=== PATIENT | male | born 1990 | race Caucasian/White ===

== ENCOUNTER 2020-10-29 12:00 | Emergency (ER) | payer MEDICAID, SELFPAY ==
[2020-10-29 12:00] VITALS: BP 116/77; PULSE 71; RESP 16; TEMP 36.4; O2SAT 100; BMI 22.9
--- NOTE | 2020-10-29 12:40 | ED.RN ---
PT NOW DRESSED SEEN LEAVING THE DEPARTMENT AND WALK OUT OF THE BUILDING
--- NOTE | 2020-10-29 12:45 | EDS_ITS ---
HPI History of Present Illness Chief Complaint: Back Informant: patient Narrative Narrative: Patient is a 30-year-old male who presents to the emergency department for low back pain. 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 He was having a hard time getting up from standing. He currently rates his pain as a 10 out of 10. He did take ibuprofen for this which has not given significant relief. The pain did go to the front of his thighs bilaterally. He denies any saddle anesthesia. No urinary incontinence/retention. No change in bowel movements. No vomiting. Denies any fevers or chills. No abdominal pain or chest pain/shortness of breath. He does have chronic back problems and history of scoliosis. [facility] Medical History (Updated 10/29/20 @ 12:[address] Mainor Genao DO) Knee arthropathy Home Medications sertraline [Zoloft] 50 mg PO DAILY 10/29/20 [History Last Taken Unknown] Allergy/AdvReac Type Severity Reaction Status Date / Time Penicillins Allergy Unknown Verified 10/29/20 12:02 Social History Smoking Status: Current every day smoker tobacco type: cigarettes ROS ROS ED Constitutional Constitutional ED: Denies chills or fever(s) Eyes Eyes: Denies change in vision ENT ENT ED: Denies epistaxis or rhinorrhea Cardiovascular Cardiovascular: Denies chest pain or palpitations Respiratory/Chest Respiratory/Chest: Denies cough, dyspnea or dyspnea on exertion Gastrointestinal Gastrointestinal: Denies abdominal pain, diarrhea, nausea or vomiting Genitourinary Genitourinary ED: Denies dysuria, hematuria or urinary frequency Musculoskeletal Musculoskeletal: Reports back pain; Denies neck pain Integumentary Denies rash Neurologic Neurologic: Denies dizziness, headache(s) or weakness EXAM Physical Exam Const Vital Signs: 10/29/20 12:00 Temperature 97.5 F L Temperature Source Temporal Pulse Rate 71 Respiratory Rate 16 Blood Pressure 116/77 Blood Pressure Mean 90 Pulse Ox 100 Oxygen Delivery Method Room Air Positive well nourished and well developed General Appearance ED: well developed and NAD HEENT Reports normocephalic, head/scalp atraumatic and moist mucous membranes Eyes PERRL and EOMs intact bilaterally Neck supple General: Negative for tenderness Chest Wall inspection of chest normal Resp normal respiratory effort and clear to auscultation bilaterally Auscultation: Negative for rales, rhonchi or wheezes Cardio regular rate, regular rhythm and no murmurs GI normal to inspection, nondistended, normoactive bowel sounds and non-tender Palpation: soft; Negative for guarding or rebound tenderness present Back/Spine no CVA tenderness and normal to inspection Back/Spine Narrative: 5 out of 5 muscle strength. Sensation intact. Lumbar Spine / Lower Back: straight leg raise negative bilaterally Extremity normal to inspection General Extremety ED: Negative for edema or tenderness General Extremity: Negative for edema Neuro no sensory deficits noted Sensorium / Orientation: alert Motor Exam: strength 5/5 throughout Psych mental status grossly normal Skin no rashes or lesions noted MDM MDM MDM Narrative Medical decision making narrative: Patient presents the ED for low back pain after lifting a box. He does have a benign physical exam. No red flag symptoms for acute surgical spinal emergency. Vital signs within normal limits. I did offer patient a dose of Toradol. Patient was initially agreeable with this but whenever the nurse went to check on him patient eloped out of the department. I did offer to write him prescription for home therapy including Lidoderm patch, Naprosyn. Patient left prior to getting discharge instructions. Discharge Plan Triage Chief Complaint: Back ED Provider: Mainor Genao Dx/Rx/DC Orders Clinical Impression: Low back pain Prescriptions: No Action sertraline [Zoloft] 50 mg Tablet 50 mg PO DAILY RF: 0 Primary Care Provider: Reed Pichardo Referrals: Reed Pichardo MD [Primary Care Provider] - Disposition Disposition: Elopement
== END 2020-10-29 12:40 | disposition left against medical advice (07) ==
LOC: ED 13:44
PROVIDERS: Emergency Provider Emergency Medicine; PCP Family Medicine
DX: M54.5 Low back pain (principal); F17.210 Nicotine dependence, cigarettes, uncomplicated; Z79.899 Other long term (current) drug therapy
CPT/HCPCS: 99281; 99282

== ENCOUNTER 2020-10-29 13:58 | Emergency (ER) | payer MEDICAID, SELFPAY ==
[2020-10-29 13:58] VITALS: BP 109/74; PULSE 57; RESP 18; TEMP 36.4; O2SAT 97; BMI 24.3
--- NOTE | 2020-10-29 15:25 | EDS_ITS ---
HPI History of Present Illness Chief Complaint: Back Informant: patient Narrative Narrative: Patient represents with back pain. He was seen here earlier. He states he thought he could do well at home without getting a shot here. He went home and his back is still sore. He has not developed new symptoms. Patient was at work earlier in the day. He lifted up a box with 12 cans in it. He got pain in his lower back. He had been doing some other lifting in the day. The pain does not and has never radiated all the way down the legs. He does occasionally get some pain in the front of his thighs. He has no bowel or bladder dysfunction. He does state he feels very stiff. He has had no recent fevers chills infections or antibiotic use. He does report a history of back pain. He has been on Flexeril and meloxicam in the past. He had MRIs in the past. He has history of fibromyalgia and scoliosis. He has never had surgeries. He can occasionally get in positions that help. Moving and twisting makes the pain worse. [facility] Medical History Knee arthropathy Home Medications cyclobenzaprine 10 mg PO TID PRN #12 tab 10/29/20 [Rx Last Taken Unknown] naproxen [Naprosyn] 500 mg PO BID PRN #20 tab 10/29/20 [Rx Last Taken Unknown] sertraline [Zoloft] 50 mg PO DAILY 10/29/20 [History Last Taken Unknown] Allergy/AdvReac Type Severity Reaction Status Date / Time Penicillins Allergy Unknown Verified 10/29/20 14:00 Social History Smoking Status: Current every day smoker tobacco type: cigarettes ROS ROS ED Constitutional Constitutional ED: Denies chills or fever(s) ENT ENT ED: Denies rhinorrhea or sore throat Cardiovascular Cardiovascular: Denies chest pain or palpitations Respiratory/Chest Respiratory/Chest: Denies dyspnea Gastrointestinal Gastrointestinal: Denies abdominal pain, constipation, diarrhea, nausea or vomiting Genitourinary Genitourinary ED: Reports other Details: No incontinence or difficulty with urination. ; Denies dysuria or hematuria Musculoskeletal Musculoskeletal: Reports back pain; Denies neck pain Integumentary Denies abscess or rash Neurologic Neurologic: Denies paresthesias or weakness Psychiatric Psychiatric: Reports depression Hematologic/Lymphatic Hematologic/Lymphatic: Denies easy bleeding or easy bruising Allergic/Immunologic Allergic/Immunologic ED: Denies urticaria EXAM Physical Exam Const Vital Signs: 10/29/20 13:58 Temperature 97.5 F L Temperature Source Temporal Pulse Rate 57 L Respiratory Rate 18 Blood Pressure 109/74 Blood Pressure Mean 85 Pulse Ox 97 Oxygen Delivery Method Room Air Positive well nourished and well developed General Appearance ED: well developed and NAD HEENT Reports moist mucous membranes Eyes EOMs intact bilaterally General Eye ED: Negative for pale conjunctiva Neck supple Resp normal respiratory effort and clear to auscultation bilaterally Cardio regular rate and regular rhythm GI normal to inspection, nondistended, normoactive bowel sounds, soft to palpation and non-tender Back/Spine normal to inspection Back/Spine Narrative: Patient does have bilateral paraspinal tenderness mostly very low in the lumbar area. No rashes erythema or skin changes. He has mild sciatic notch tenderness more on the right than the left. General Back: Negative for CVA tenderness Extremity normal to inspection Extremity Narrative: No edema or cords. No tenderness. He does have a ankle bracelet on his left. General Extremety ED: Negative for edema or tenderness General Extremity: Negative for edema Neuro oriented x3 Neuro Narrative: Patients can stand and walk. He gets up independently. He has normal quadricep and calf strength. Sensation is intact. Pulses are intact. He has good +2 bilateral patellar reflexes. He has no clonus. Achilles are normal. Sensorium / Orientation: alert Psych mental status grossly normal Skin no rashes or lesions noted and no wounds MDM MDM MDM Narrative Medical decision making narrative: By history, patient has musculoskeletal back pain/strain. He has no red flags of back pain. He does have a history of chronic issues. No recent infections. No neurologic symptoms by exam or history. I think nonsteroidals muscle relaxants ice and rest will be appropriate. Discharge Plan Triage Chief Complaint: Back ED Provider: Tino Ware Dx/Rx/DC Orders Clinical Impression: Low back pain Instructions: ED Back Sprain/Strain Prescriptions: New naproxen [Naprosyn] 500 mg tablet 500 mg PO BID PRN (Reason: pain) Qty: 20 RF: 0 cyclobenzaprine 10 mg tablet 10 mg PO TID PRN (Reason: muscle spasm) Qty: 12 RF: 0 No Action sertraline [Zoloft] 50 mg Tablet 50 mg PO DAILY RF: 0 Primary Care Provider: Reed Pichardo Referrals: Reed Pichardo MD [Primary Care Provider] - 3-5 Days if not improving Disposition Disposition: Home, Self Care
[2020-10-29] MEDS: Ketorolac 60 MG/2 ML Vial IM (15:44)
[2020-10-29] MEDS: cycloBENZAPRine HCl 10 MG Tablet PO (15:45)
== END 2020-10-29 16:08 | disposition home or self-care (01) ==
LOC: ED 16:07
PROVIDERS: Emergency Provider Emergency Medicine; PCP Family Medicine
DX: M54.5 Low back pain (principal); F17.210 Nicotine dependence, cigarettes, uncomplicated; Z79.899 Other long term (current) drug therapy
CPT/HCPCS: 96372; 99283

== ENCOUNTER 2021-02-10 17:18 | Emergency (ER) | payer MEDICAID, SELFPAY ==
[2021-02-10 17:18] VITALS: BP 116/76; PULSE 68; RESP 16; TEMP 36.8; O2SAT 97; BMI 22.3
--- NOTE | 2021-02-10 19:26 | EDS_ITS ---
HPI History of Present Illness Chief Complaint: Bite Detail of Chief Complaint: Left forearm Informant: patient Occured/Mechanism Comment: Dog bite Onset/Context/Timing Onset: Days Context: Gradual Onset Timing: Continuous Current Severity: Mild Maximum Severity: Mild Associated Symptoms Associated Symptoms: Negative for Parasthesia, Weakness and Loss of Funtion Narrative Narrative: 30-year-old male [id number]. They have a new Labrador retriever puppy at home. It bit him on his left forearm on Sunday it is now become red and swollen. Mild discomfort. No fever. He is not diabetic. Prior similar symptoms: No Recent Illness/Hospitalization: No ROS ROS ED ROS Narrative Denies recent illness. Review of Systems ROS Unobtainable: Denies due to encephalopathy Constitutional Constitutional ED: Denies chills or fever(s) Eyes Eyes: Denies change in vision ENT ENT ED: Denies ear pain Cardiovascular Cardiovascular: Denies chest pain Respiratory/Chest Respiratory/Chest: Denies dyspnea Gastrointestinal Gastrointestinal: Denies abdominal pain, nausea or vomiting Genitourinary Genitourinary ED: Denies dysuria Musculoskeletal Musculoskeletal: Denies myalgias Integumentary Denies rash Neurologic Neurologic: Denies headache(s) Psychiatric Psychiatric: Denies depression Endocrine Endocrinology: Denies polyuria Hematologic/Lymphatic Hematologic/Lymphatic: Denies easy bruising Allergic/Immunologic Allergic/Immunologic ED: Denies urticaria [facility] Medical History Depression Knee arthropathy Home Medications sertraline [Zoloft] 50 mg PO DAILY 10/29/20 [History Last Taken Unknown] albuterol sulfate 2 inh INHALATION Q4H PRN PRN 02/10/21 [History Last Taken Unknown] bupropion HCl 150 mg PO DAILY 02/10/21 [History Last Taken Unknown] Allergy/AdvReac Type Severity Reaction Status Date / Time Penicillins Allergy Unknown Verified 02/10/21 17:21 Social History Smoking Status: Current every day smoker tobacco type: cigarettes EXAM Physical Exam Narrative Exam Narrative: 28-year-old male no acute distress. HEENT neck heart lung abdominal exams are unremarkable. Left forearm is about a 4 to 6 inch area of cellulitis on the forearm. Is mildly tender minimally swollen. Left hand is neurovascularly intact with normal strength and sensation. Normal radial pulse and cap refill. He has full range of motion of left shoulder elbow wrist and hand. There is no lymphangitic streaking and there is no axillary lymphadenopathy. Otherwise exam normal. Const Vital Signs: 02/10/21 17:18 Temperature 98.2 F Temperature Source Temporal Pulse Rate 68 Respiratory Rate 16 Blood Pressure 116/76 Blood Pressure Mean 89 Pulse Ox 97 Oxygen Delivery Method Room Air Positive well nourished and well developed; Negative for obese, cachectic, contractures or unkempt General Appearance ED: well developed and NAD; Negative for unkempt, cachectic or contractures Nutritional Appearance: Negative for cachectic or obese HEENT Reports moist mucous membranes normocephalic and atraumatic Eyes PERRL and EOMs intact bilaterally Neck full ROM and no lymphadenopathy Resp normal respiratory effort and clear to auscultation bilaterally Cardio regular rate, regular rhythm, S1 normal heart sound, S2 normal heart sound and no murmurs GI non-tender, non-distended and no masses Auscultation: normoactive bowel sounds Palpation: soft; Negative for tender, guarding or rebound tenderness present Back/Spine no CVA tenderness Extremity normal to inspection Extremity Narrative: Except left forearm cellulitis. Mild tenderness. Neurovascularly intact. No lymphangitic streaking. No axillary lymphadenopathy. Neuro oriented x3 Sensorium / Orientation: alert, oriented to person, oriented to place and oriented to time; Negative for orientation impaired, confused, lethargic or stuporous Motor Exam: strength 5/5 throughout Psych mental status grossly normal and thought process normal Appearance: Negative for unkempt Skin Skin Narrative: Left forearm cellulitis. MDM MDM MDM Narrative Medical decision making narrative: Left arm cellulitis from the dog bite. Will be started on Augmentin twice daily for 10 days first dose given in ER. Return if increasing pain, swelling red streaks or fever. Discharge Plan Triage Chief Complaint: Bite ED Provider: Vinny Benites Dx/Rx/DC Orders Prescriptions: No Action sertraline [Zoloft] 50 mg Tablet 50 mg PO DAILY RF: 0 albuterol sulfate 90 mcg/actuation HFA aerosol inhaler 2 inh INHALATION Q4H PRN PRN (Reason: Wheezing) RF: 0 bupropion HCl 150 mg tablet extended release 24 hr 150 mg PO DAILY RF: 0 Primary Care Provider: Reed Pichardo
[2021-02-10] MEDS: Amox/Clavulanate 875 MG Tablet PO (19:30)
== END 2021-02-10 19:36 | disposition home or self-care (01) ==
PROVIDERS: Emergency Provider Emergency Medicine; PCP Family Medicine
DX: L03.114 Cellulitis of left upper limb (principal); S51.852A Open bite of left forearm, initial encounter; F17.210 Nicotine dependence, cigarettes, uncomplicated; F32.A Depression, unspecified; W54.0XXA Bitten by dog, initial encounter; Z79.899 Other long term (current) drug therapy
CPT/HCPCS: 99283

== ENCOUNTER 2021-05-18 10:26 | Emergency (ER) | payer MEDICAID, SELFPAY ==
[2021-05-18 10:28] VITALS: BP 123/81; PULSE 78; RESP 17; TEMP 36.7; O2SAT 100; BMI 22.1
--- NOTE | 2021-05-18 11:11 | CT_ITS ---
STUDY: CT ABDOMEN AND PELVIS WITH CONTRAST REASON FOR EXAM: Male, 31 years old. Abd pain, rectal pain. One week history of constipation. RADIATION DOSAGE (If Supplied By Facility): CTDIvol = ( 9.66 ) mGy, DLP = ( 469.39 ) mGycm TECHNIQUE: Transaxial images were obtained from the dome of the diaphragm to the symphysis pubis without oral contrast. IV 100mL Isovue-300 was administered. Sagittal and coronal images were reconstructed. Individualized dose optimization techniques were used for this CT. COMPARISON: None. FINDINGS: The visualized lung bases are unremarkable. The visualized portions of the heart are within normal limits. Normal liver. Normal gallbladder and extrahepatic biliary system. Normal spleen. Normal pancreas. Normal bilateral adrenal glands. Normal right kidney. Normal left kidney. Normal visualized stomach. Inflammatory changes are also seen in the terminal ileum. Crohn''s colitis should be ruled out. Diffuse circumferential wall thickening and edematous changes with the inflammatory changes within the surrounding peritoneal fat involving the right hemicolon to the mid distal portion of the transverse colon. Is also evidence of small lymph nodes in the mesenteric fat in the right lower quadrant. The appendix is visualized and appears normal. Normal abdominal aorta. Normal inferior vena cava. Normal retroperitoneum. Normal urinary bladder. Normal abdominal wall. Normal osseous structures. CT/Abdomen/Pelvis W IV Cont ONLY IMPRESSION: Findings suggestive of colitis involving the right hemicolon as well as the terminal ileum inflammatory changes in the surrounding peritoneal fat. Crohn''s disease should be ruled out. Electronically Signed: Arley Mcgarry MD at 11:57 EST ,
[2021-05-18] MEDS: 0.9% Normal Saline 1,000 ML 1000 ML IV (11:20)
[2021-05-18] MEDS: Ketorolac 15 MG/ML Vial IV (11:20)
[2021-05-18 11:32] LABS: Absolute Lymphocyte Count 1.62 X10^3/uL (0.83-4.51); Absolute Neutrophil Count 9.2 X10^3/uL (2.0-7.7); Basophil# 0.03 X10^3/uL; Basophil% 0.3 % (0-1); Eosinophil# 0.12 X10^3/uL; Hematocrit 45.5 % (40-54); Hemoglobin 16.1 g/dL (13.0-16.5); Lymphocyte # 1.62 X10^3/ul (0.83-4.51); Lymphocyte % 14.1 % (19-41); Mean Corp Hgb Conc 35.4 g/dL (32-36); Mean Corpuscular Hgb 32.9 pg (27.0-32.0); Mean Corpuscular Volume 92.9 fL (80-94); Mean Platelet Vol. 10.4 fl (6.2-12.0); Monocyte# 0.57 X10^3/uL; Monocyte% 4.9 % (0-10); NRBC Flagged by Analyzer 0 % (0-5); Neutrophil # 9.15 X10^3/uL (2.7-7.7); Neutrophil % 79.4 % (47-70); Platelet Count 183 K/mm3 (150-450); RBC Distribution Width CV 12.3 % (11.6-14.6); RBC Distribution Width SD 42.5 fl (35.1-43.9); White Blood Count 11.5 K/mm3 (4.4-11.0)
[2021-05-18 11:48] LABS: ALB/GLOB Ratio 0.9 RATIO (0.9-2.4); AST(SGOT) 12 U/L (15-37); Alanine Aminotransfer ALT/SGPT 17 U/L (16-61); Albumin, Serum 3.6 g/dL (3.2-5.0); Alkaline Phosphatase 83 U/L (45-117); Anion Gap 8 (5-15); BUN 13 mg/dL (7-18); BUN/Creat Ratio 17.8 RATIO (10-20); Calcium,Total 9.3 mg/dL (8.5-10.1); Chloride 104 mmol/L (98-107); Creatinine, Serum 0.73 mg/dL (0.70-1.30); EST Glomerular Filtration Rate 132 mL/min (>60); Est Glom Filt Rate - Afr Amer 159 mL/min (>60); Estimated Creatinine Clearance 146.78 ml/min; Globulin 4.1 g/dL (2.2-4.2); Glucose 84 mg/dL (74-106); Lipase 41 U/L (73-393); Potassium 4.2 mmol/L (3.5-5.1); Protein, Total 7.7 g/dL (6.4-8.2); Sodium Level 137 mmol/L (136-145)
[2021-05-18 12:29] LABS: Bacteria 0 SEEN /hpf (None Seen); Mucous, Urine 0 SEEN /hpf (<or=2+); Red Blood Cells-Urine 0 SEEN /hpf (0-5); Squamous Epithelial Cells - UA 0 SEEN /hpf (0-5); White Blood Cells 0 SEEN /hpf (0-5)
[2021-05-18 12:32] LABS: Color, Urine Yellow (Yellow); Glucose, Dipstick Normal (Normal); Ketone-Dipstick Negative (Negative); Leukocyte Esterase-Dipstick Negative /ul (Negative); Nitrite-Dipstick Negative (Negative); Occult Blood-Urine Negative /ul (Negative); Protein-Dipstick 15 mg/dl (Negative); Urine Bilirubin Dipstick Negative (Negative); Urine Clarity Clear (Clear); Urine Urobilinogen Normal (Normal)
--- NOTE | 2021-05-18 13:09 | ED.VIS.GI ---
HPI HPI - GI History of Present Illness Chief Complaint: Abd Pain Informant: patient Narrative Narrative: Patient is a 31-year-old male presenting with abdominal discomfort. Patient states he has been having worsening abdominal pain for about a week and he has been feeling very constipated. He states he had 2 bowel movements today but continues to feel that he needs to strain and have more bowel movements. He has been on and off MiraLAX and Metamucil but continues to feel this way. Denies any fever but does report night sweats. Has had weight loss has been unintentional. Notes his diet is pretty poor because he cannot afford a lot of fruits and vegetables. States his mother has a history of IBS. Not sure of any other family history of any autoimmune disorders. Has never seen a GI doctor. Is never had any abdominal imaging. Notes he does have a small amount of blood when he wipes. PFSH PFS Medical History Depression Knee arthropathy Home Medications sertraline [Zoloft] 200 mg PO DAILY 10/29/20 [History Last Taken Unknown] albuterol sulfate 2 inh INHALATION Q4H PRN PRN 02/10/21 [History Last Taken Unknown] amoxicillin-pot clavulanate [Augmentin] 1 tab PO BID 10 Days #20 tab 02/10/21 [Rx Last Taken Unknown] bupropion HCl 150 mg PO DAILY 02/10/21 [History Last Taken Unknown] ciprofloxacin HCl 500 mg PO BID 7 Days #14 tab 05/18/21 [Rx Last Taken Unknown] metronidazole 500 mg PO BID 7 Days #14 tab 05/18/21 [Rx Last Taken Unknown] prednisone 40 mg PO BID #30 tab 05/18/21 [Rx Last Taken Unknown] Allergy/AdvReac Type Severity Reaction Status Date / Time Penicillins Allergy Unknown Verified 05/18/21 10:27 Social History Smoking Status: Current every day smoker tobacco type: cigarettes ROS ROS ED Constitutional Constitutional ED: Reports weight loss and other Details: Night sweats ; Denies chills or fever(s) Cardiovascular Cardiovascular: Denies chest pain Respiratory/Chest Respiratory/Chest: Denies dyspnea Gastrointestinal Gastrointestinal: Reports abdominal pain, constipation and nausea; Denies vomiting Genitourinary Genitourinary ED: Denies dysuria or hematuria Musculoskeletal Musculoskeletal: Denies arthralgias or myalgias Integumentary Denies rash Neurologic Neurologic: Denies headache(s) or weakness Psychiatric Psychiatric: Denies depression EXAM Physical Exam Const Vital Signs: 05/18/21 10:28 Temperature 98.0 F Temperature Source Temporal Pulse Rate 78 Respiratory Rate 17 Blood Pressure 123/81 H Blood Pressure Mean 95 Pulse Ox 100 Oxygen Delivery Method Room Air Positive well nourished and well developed General Appearance ED: well developed HEENT normocephalic and atraumatic Eyes PERRL and EOMs intact bilaterally General Eye ED: Negative for pale conjunctiva Neck no lymphadenopathy and supple Resp normal respiratory effort and clear to auscultation bilaterally Cardio regular rate, regular rhythm and no murmurs GI non-distended GI Narrative: No external hemorrhoids on rectal exam. No stool in the vault. Patient does have a lot of tenderness diffusely on rectal exam. No fissures appreciated. Auscultation: normoactive bowel sounds Palpation: soft and tender other (Diffuse); Negative for guarding, rigid or rebound tenderness present Back/Spine no CVA tenderness Extremity full ROM General Extremety ED: Negative for edema General Extremity: Negative for edema Neuro Sensorium / Orientation: alert and oriented to person Psych mental status grossly normal Skin Lesions: no lesions Rashes: no rashes MDM MDM MDM Narrative Medical decision making narrative: Patient evaluated for recurrent abdominal pain that is become more severe as well as a feeling of constipation and needing to have more bowel movements. He already had 2 bowel movements today. Physical exam is pretty unremarkable. He is hemodynamically stable. I did get a CT of the abdomen pelvis which showed diffuse colitis of the right hemicolon as well as involvement of the terminal ileum. This is concerning for Crohn's. Case is discussed with GI on-call who requested specific test including ESR, CRP, protein electrophoresis, immunoglobulins, hepatitis panel, RENATA comprehensive panel and QuantiFERON gold anticipation of starting patient on immunosuppressants. Patient will follow-up outpatient. He is started on prednisone, Cipro and Flagyl in the meantime. Patient is agreeable this plan of care. Is counseled return precautions. At this time I do not think he requires hospitalization. Lab Data Labs: Laboratory Results - last 24 hr 05/18/21 05/18/21 05/18/21 11:23 11:23 12:20 WBC 11.5 H RBC 4.90 Hgb 16.1 Hct 45.5 MCV 92.9 MCH 32.9 H MCHC 35.4 RDW Std Deviation 42.5 RDW Coeff of Yoselin 12.3 Plt Count 183 MPV 10.4 Immature Gran % (Auto) 0.300 Neut % (Auto) 79.4 H Lymph % (Auto) 14.1 L Rush % (Auto) 4.9 Eos % (Auto) 1.0 Baso % (Auto) 0.3 Absolute Neuts (auto) 9.2 H Absolute Lymphs (auto) 1.62 Nucleated RBC % 0 Sodium 137 Potassium 4.2 Chloride 104 Carbon Dioxide 25.0 Anion Gap 8 BUN 13 Creatinine 0.73 Estim Creat Clear Calc 146.78 Est GFR (MDRD) Af Amer 159 Est GFR (MDRD) Non-Af 132 BUN/Creatinine Ratio 17.8 Glucose 84 Calcium 9.3 Total Bilirubin 0.30 AST 12 L ALT 17 Alkaline Phosphatase 83 Total Protein 7.7 Albumin 3.6 Globulin 4.1 Albumin/Globulin Ratio 0.9 Lipase 41 L Urine Color Yellow Urine Clarity Clear Urine pH 5.0 Ur Specific [place] 1.010 Urine Protein 15 H Urine Glucose (UA) Normal Urine Ketones Negative Urine Occult Blood Negative Urine Nitrite Negative Urine Bilirubin Negative Urine Urobilinogen Normal Ur Leukocyte Esterase Negative Urine RBC 0 SEEN Urine WBC 0 SEEN Ur Squamous Epith Cells 0 SEEN Urine Bacteria 0 SEEN Urine Mucus 0 SEEN Radiography Diagnostic Testing: Clinical Impression(s) from Imaging Studies Abdomen/Pelvis CT 05/18/21 11:11 IMPRESSION: Findings suggestive of colitis involving the right hemicolon as well as the terminal ileum inflammatory changes in the surrounding peritoneal fat. Crohn''s disease should be ruled out. Electronically Signed: Arlye Mcgarry MD at 11:57 EST , Discharge Plan Triage Chief Complaint: Abd Pain ED Provider: Kiara Ceballos Dx/Rx/DC Orders Clinical Impression: Right sided colitis Instructions: ED Understanding Colitis, ED Crohn's Disease Prescriptions: New ciprofloxacin HCl 500 mg tablet 500 mg PO BID 7 Days Qty: 14 RF: 0 prednisone 20 mg tablet 40 mg PO BID Qty: 30 RF: 0 metronidazole 500 mg tablet 500 mg PO BID 7 Days Qty: 14 RF: 0 No Action sertraline [Zoloft] 50 mg Tablet 200 mg PO DAILY RF: 0 albuterol sulfate 90 mcg/actuation HFA aerosol inhaler 2 inh INHALATION Q4H PRN PRN (Reason: Wheezing) RF: 0 bupropion HCl 150 mg tablet extended release 24 hr 150 mg PO DAILY RF: 0 amoxicillin-pot clavulanate [Augmentin] 875-125 mg tablet 1 tab PO BID 10 Days Qty: 20 RF: 0 Primary Care Provider: Reed Pichardo Referrals: Dipak Juarez DO [STAFF PHYSICIAN] - As soon as possible Reed Pichardo MD [Primary Care Provider] - Activity Restrictions/Additional Instructions: Your CT shows colitis of the right side of your colon. This is concerning for a disease called Crohn's disease. You will need outpatient follow-up with a GI doctor. We have discussed the case with Dr. Juarez and you can follow-up with him. Please call his office today or tomorrow to schedule an appointment. Disposition Disposition: Home, Self Care
[2021-05-18] MEDS: predniSONE 20 MG Tablet 40 MG PO (13:22)
[2021-05-18] MEDS: metroNIDAZOLE 500 MG Tablet PO (13:22)
[2021-05-18] MEDS: Ciprofloxacin 500 MG Tablet PO (13:22)
[2021-05-18 13:45] LABS: Erythrocyte Sedimentation Rate 22 mm/hr (0-20)
[2021-05-20 15:08] LABS: Anti-Centromere B Ab <0.2 AI (0.0-0.9); Anti-Chromatin <0.2 AI (0.0-0.9); Anti-Jo <0.2 AI (0.0-0.9); Anti-Scleroderma-70 AB <0.2 AI (0.0-0.9); RNP Ab <0.2 AI (0.0-0.9); SJOGREN'S Anti-SS-A test < 0.2 AI (0.0-0.9); SJOGREN'S Anti-SS-B test < 0.2 AI (0.0-0.9); Smith Ab <0.2 AI (0.0-0.9)
[2021-05-20 21:58] LABS: Anti-dsDNA Ab 1 IU/mL (0-9)
[2021-05-20 22:07] LABS: HEPATITIS B SURFACE AG Negative (Negative); Hepatitis A IgM Antibody Negative (Negative); Hepatitis B Core AB IgM Negative (Negative); QNTFERON TB Mitogen Value > 10.00 IU/mL (.); QNTFERON TB Nil Value 0.03 IU/mL (.); QNTFERON TB1+ Ag Value 0.06 IU/mL (.); QNTFERON TB2+ Ag Value 0.05 IU/mL (.)
[2021-05-20 22:18] LABS: Hep C Antibodies <0.1 s/co ratio (0.0-0.9); QNTIFERON TB Positive Criteria Negative (Negative)
[2021-05-25 00:06] LABS: Immunoglobulin A 281 mg/dL (90-386); Immunoglobulin G 876 mg/dL (603-1613); Immunoglobulin M 80 mg/dL (20-172); PROEL- A/G Ratio 1.2 (0.7-1.7); PROEL- Albumin 4.1 g/dL (2.9-4.4); PROEL- Alpha-1 Globulin 0.4 g/dL (0.0-0.4); PROEL- Alpha-2 Globulin 1.1 g/dL (0.4-1.0); PROEL- Beta Globulin 1.1 g/dL (0.7-1.3); PROEL- Gamma Globulin 0.9 g/dL (0.4-1.8); PROEL- Globulin, Total 3.4 g/dL (2.2-3.9); PROEL- TOTAL PROTEIN 7.5 g/dL (6.0-8.5)
[2021-05-25 13:54] LABS: Immunoglobulin E 47 IU/mL (6-495)
== END 2021-05-18 13:44 | disposition home or self-care (01) ==
PROVIDERS: Emergency Provider Emergency Medicine; PCP Family Medicine; Visit Provider Emergency Medicine
DX: K52.9 Noninfective gastroenteritis and colitis, unspecified (principal); F17.210 Nicotine dependence, cigarettes, uncomplicated; R63.4 Abnormal weight loss; F32.A Depression, unspecified; Z79.899 Other long term (current) drug therapy
CPT/HCPCS: 74177; 80053; 80074; 81001; 82784; 82785; 83690; 84165; 85025; 85652; 86140; 86225; 86235; 86480; 96361; 96374; 99284; J7030; Q9967; A4216

== ENCOUNTER 2021-06-02 09:59 | Outpatient (CLI) | payer MEDICAID, SELFPAY ==
[2021-06-02 10:22] LABS: Absolute Neutrophil Count 6.3 X10^3/uL (2.0-7.7); Basophil# 0.05 X10^3/uL; Basophil% 0.6 % (0-1); Eosinophil# 0.23 X10^3/uL; Eosinophils% 2.5 % (0-5); Hematocrit 43.8 % (40-54); Hemoglobin 15.8 g/dL (13.0-16.5); Lymphocyte % 19.8 % (19-41); Mean Corp Hgb Conc 36.1 g/dL (32-36); Mean Corpuscular Hgb 32.8 pg (27.0-32.0); Mean Corpuscular Volume 90.9 fL (80-94); Mean Platelet Vol. 9.9 fl (6.2-12.0); Monocyte# 0.69 X10^3/uL; Monocyte% 7.6 % (0-10); NRBC Flagged by Analyzer 0 % (0-5); Neutrophil # 6.25 X10^3/uL (2.7-7.7); Neutrophil % 68.9 % (47-70); Platelet Count 217 K/mm3 (150-450); RBC Distribution Width CV 12.2 % (11.6-14.6); RBC Distribution Width SD 40.6 fl (35.1-43.9); Red Blood Count 4.82 M/mm3 (4.6-6.2); White Blood Count 9.1 K/mm3 (4.4-11.0)
[2021-06-02 11:00] LABS: Hepatitis B Surface Antibody Non-Reactive; Rubella IgG Reactive (Nonreactive)
[2021-06-02 11:02] LABS: AST(SGOT) 14 U/L (15-37); Alanine Aminotransfer ALT/SGPT 28 U/L (16-61); Albumin, Serum 3.7 g/dL (3.2-5.0); Alkaline Phosphatase 66 U/L (45-117); Amylase 49 U/L (25-115); Anion Gap 4 (5-15); BUN 12 mg/dL (7-18); BUN/Creat Ratio 14.1 RATIO (10-20); Calcium,Total 9.7 mg/dL (8.5-10.1); Chloride 107 mmol/L (98-107); Creatinine, Serum 0.85 mg/dL (0.70-1.30); EST Glomerular Filtration Rate 110 mL/min (>60); Est Glom Filt Rate - Afr Amer 133 mL/min (>60); Globulin 3.6 g/dL (2.2-4.2); Glucose 77 mg/dL (74-106); Potassium 4.4 mmol/L (3.5-5.1); Protein, Total 7.3 g/dL (6.4-8.2); Sodium Level 139 mmol/L (136-145)
[2021-06-03 16:55] LABS: Rubeola IgG Ab < 13.5 AU/mL (Immune >16.4); V-Zoster IgG (Immunity) 1168 index (Immune >165)
== END 2021-06-02 23:59 | disposition home or self-care (01) ==
PROVIDERS: PCP Family Medicine; Visit Provider Nurse Practitioner Adult Health
DX: R10.9 Unspecified abdominal pain (principal); R19.7 Diarrhea, unspecified; R79.82 Elevated C-reactive protein (CRP); K52.9 Noninfective gastroenteritis and colitis, unspecified
CPT/HCPCS: 36415; 80053; 82150; 85025; 86706; 86735; 86762; 86765; 86787

== ENCOUNTER 2021-06-06 13:12 | Outpatient (CLI) | payer MEDICAID, SELFPAY ==
[2021-06-08 14:06] LABS: Giardia Lamblia, Stool EIA Negative (Negative)
[2021-06-08 21:23] LABS: Calprotectin, Stool 70 ug/g (0-120)
== END 2021-06-06 23:59 | disposition home or self-care (01) ==
LOC: LABSPEC 13:14
PROVIDERS: PCP Family Medicine; Referring Provider Nurse Practitioner Adult Health; Visit Provider Nurse Practitioner Adult Health
DX: K52.9 Noninfective gastroenteritis and colitis, unspecified (principal); R79.82 Elevated C-reactive protein (CRP); R19.7 Diarrhea, unspecified; R10.9 Unspecified abdominal pain
CPT/HCPCS: 83630; 83993; 87177; 87209; 87329; 87493; 87506

== ENCOUNTER → 2021-07-05 | Outpatient (CLI) | payer MEDICAID, SELFPAY ==
[2021-07-05 11:23] LABS: Absolute Lymphocyte Count 0.78 X10^3/uL (0.83-4.51); Absolute Neutrophil Count 7.2 X10^3/uL (2.0-7.7); Basophil# 0.02 X10^3/uL; Basophil% 0.2 % (0-1); Eosinophil# 0.05 X10^3/uL; Eosinophils% 0.6 % (0-5); Hematocrit 45.8 % (40-54); Hemoglobin 15.8 g/dL (13.0-16.5); Lymphocyte # 0.78 X10^3/ul (0.83-4.51); Lymphocyte % 9.2 % (19-41); Mean Corp Hgb Conc 34.5 g/dL (32-36); Mean Corpuscular Hgb 31.9 pg (27.0-32.0); Mean Corpuscular Volume 92.3 fL (80-94); Mean Platelet Vol. 9.5 fl (6.2-12.0); Monocyte# 0.32 X10^3/uL; Monocyte% 3.8 % (0-10); NRBC Flagged by Analyzer 0 % (0-5); Neutrophil # 7.21 X10^3/uL (2.7-7.7); Neutrophil % 85.4 % (47-70); Platelet Count 189 K/mm3 (150-450); RBC Distribution Width CV 12.4 % (11.6-14.6); RBC Distribution Width SD 42.5 fl (35.1-43.9); Red Blood Count 4.96 M/mm3 (4.6-6.2); White Blood Count 8.5 K/mm3 (4.4-11.0)
[2021-07-05 11:51] LABS: AST(SGOT) 14 U/L (15-37); Alanine Aminotransfer ALT/SGPT 35 U/L (16-61); Albumin, Serum 3.8 g/dL (3.2-5.0); Alkaline Phosphatase 82 U/L (45-117); Anion Gap 2 (5-15); BUN 11 mg/dL (7-18); Calcium,Total 8.8 mg/dL (8.5-10.1); Chloride 105 mmol/L (98-107); Creatinine, Serum 0.85 mg/dL (0.70-1.30); EST Glomerular Filtration Rate 110 mL/min (>60); Est Glom Filt Rate - Afr Amer 134 mL/min (>60); Globulin 3.8 g/dL (2.2-4.2); Glucose 107 mg/dL (74-106); Potassium 4.3 mmol/L (3.5-5.1); Protein, Total 7.6 g/dL (6.4-8.2); Sodium Level 137 mmol/L (136-145)
[2021-07-07 12:54] LABS: Calprotectin, Stool <16 ug/g (0-120)
== END | disposition home or self-care (01) ==
LOC: LAB 10:58
PROVIDERS: PCP Family Medicine; Referring Provider Nurse Practitioner Adult Health; Visit Provider Nurse Practitioner Adult Health
DX: R79.82 Elevated C-reactive protein (CRP) (principal); K52.9 Noninfective gastroenteritis and colitis, unspecified; A04.72 Enterocolitis due to Clostridium difficile, not specified as recurrent
CPT/HCPCS: 36415; 80053; 83630; 83993; 85025; 87493

== ENCOUNTER 2021-08-25 10:13 | Day surgery (SDC) | payer MEDICAID, SELFPAY ==
[2021-08-25] VITALS (11 sets, daily range): BP systolic 97–123; BP diastolic 65–91; PULSE 57–88; RESP 16–24; TEMP 36.1–37.1; O2SAT 96–100; BMI 22.1
[2021-08-25] MEDS: Lactated Ringers 1,000 ML 15 ML IV ×2 (10:39→12:17)
--- NOTE | 2021-08-25 10:52 | HP.PCM_ITS ---
History and Physical Date of Admission: 08/25/21 COBY THACKER, is a 31 M who presents to the office today for f/u diarrhea. We diagnosed him with C difficile colitis, he completed course of vancomycin 4 days ago. He called the office last week c/o no improvement in symptoms; since starting hyoscyamine he reports abd pain is significantly better. No significant improvement in diarrhea. He has a 17-year history of abdominal pain, urgent diarrhea, tenesmus, and occasional fecal incontinence. He also has chronic heartburn. CT findings suspicious for Crohn's disease. We have him scheduled for EGD and colonoscopy. He is on prednisone. 05/2021 ED visit: CT showed diffuse inflammation right sided colon and terminal ileum, suspicious for Crohn's disease. ESR 22, CRP 26. Normal lab results: immunoglobulins, RENATA comprehensive, Quantiferon TB, hepatitis panel, lipase. His symptoms began age 14, pain right side abd every day. Can have some relief of pain after BM. Urgent BMs with diarrhea. Has 7 BMs per day, usually liquid watery stools. Has had fecal incontinence. Gets urge to go but then can't go, may sit on toilet for an hour. No hematochezia or melena. Smokes 1.5 ppd Medical marijuana 2-3x per day No alcohol, prior alcohol abuse ROS Const Constitutional: Positive for fatigue, weakness and weight change ENT ENT: Positive for nasal congestion and hoarseness; No difficulty swallowing Cardio Cardiology: Positive for shortness of breath Gastro GI: Positive for abdominal pain, bloating, change in bowel habits, diarrhea, heartburn, Blood in stool and nausea/dyspepsia; No belching, change in stool character, coffee ground emesis, constipation, cramping, difficulty swallowing, feeling full early, excessive flatus, incontinent of stools, Vomiting blood/hematemesis, loose stools, Black,tarry stools, pain with swallowing, vomiting or other Genitourinary Male: Positive for urinary frequency Musc Musculoskeletal: Positive for abnormal gait, joint pain, back pain, muscle cramps, numbness, stiffness, tingling, Arthritis and leg pain at night Skin Skin: No yellowing of the eye or itchy eyes Neuro Neurology: Positive for abnormal gait, weakness, numbness and tingling Psych Psychiatric: No anxiety and No depression Endo Endocrine: Positive for cold intolerance, fatigue, heat intolerance, increased thirst/drinking and weight change Aller/Imm Allergy/Immunologic: No itchy eyes Faizan/Lymp Hematologic/Lymphatic: Positive for easy bruising; No easy bleeding Exam Const General: cooperative, comfortable, well developed and well groomed Eyes Conjunctivae: conjunctivae normal Sclera: sclerae normal GI Inspection: normal to inspection Palpation: soft and nontender Skin General: no rashes or lesions noted and no jaundice Quality Reporting Tobacco Screening ([facility] 138) Smoking Status: Current every day smoker Assessment and Plan Assessment and Plan (1) C. difficile colitis: ?Status:?Acute (2) Chronic diarrhea: ?Status:?Chronic (3) Elevated C-reactive protein (CRP): ?Status:?Acute ? ? ? Orders:?Orders: ? Stool Lactoferrin/WBC Today A04.72 ? ? Calprotectin, Stool Today A04.72 ? ? 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 We treated him for C difficile; we'll check C diff, stool lactoferrin one wk after he completed vancomycin. We'll call him with results. Consider colestipol to firm up his stool. Continue w/u for Crohn's, he is scheduled for EGD and colonoscopy. Plan Details Other Medications: ?Discontinued: ? azathioprine ?? Discontinued Reason:? Order Completed 50 mg? PO DAILY 30 tabs 0RF ? ? I have re-examined the patient. There are no clinical changes since date of exam.
--- NOTE | 2021-08-25 11:00 | IMM_PTH ---
PATIENT: COBY THACKER LOC: [facility] U#:[id number] AGE/SX: 31/M ROOM: RE08/25/[address]: Dr. Dipak Juarez DO : 1990 BED: DIS: 08/25/2021 SPEC #: [id number] RECD: 08/25/21 13:45 STATUS: AYDEN REQ #: [id number] BUNNY: 08/25/21 11:[address]: Dipak Juarez DEPT: IMMUNOHISTOCHEMISTRY RECD BY: Lourdes Bonilla ENTERED: 08/25/21 13:45 SP TYPE: IMMUNO OTHR DR: Dr. Reed Pichardo MD Tissues: B - Stomach, NOS Procedures: H Pylori (initial) PHYSICIAN & INSTITUTION [place] [id number] SPECIMEN INFORMATION: Tissue Source: C ? Gastric body biopsy Clinical Info: C. difficile colitis, chronic diarrhea, chronic elevated C-reactive protein Specimen Number: [id number] CPT code: 62050 METHODOLOGY: Deparaffinized sections of prefer/formalin-fixed tissue or PAP/DQ stained slides are incubated with monoclonal/polyclonal antibodies/oligonucleotide probes. Localization is made via biotin free immunoperoxidase method. Appropriate controls are performed and reacted as expected. Results on target cell population are indicated in the following table: RESULTS: ANTIBODY / CLONE RESULT Block C H Pylori (polyclonal) negative These tests were developed and their performance characteristics determined by [facility]. They may not have been cleared or approved by the U.S. Food and Drug Administration. The FDA has determined that such clearance or approval is not necessary. The above immunohistochemical/dualISH markers are ordered and reviewed by the Pathologist. INTERPRETATION: C. Gastric body, biopsy: Negative for Helicobacter pylori organisms. SJ:taz 08/30/2021
--- NOTE | 2021-08-25 11:00 | EGD_PTH ---
PATIENT: COBY THACKER LOC: EN U#:[id number] AGE/SX: 31/M ROOM: RE08/25/[address]: Dr. Dipak Juarez DO : 1990 BED: DIS: 08/25/2021 SPEC #: [id number] RECD: 08/25/21 12:13 STATUS: AYDEN GARFIELD #: [id number] BUNNY: 08/25/21 11:[address]: Dipak Juarez DEPT: SURGICAL PATHOLOGY RECD BY: Viry Barton ENTERED: 08/25/21 12:59 SP TYPE: EGD BIOPSY OT DR: Dr. Reed Pichardo MD Tissues: A - Duodenum, NOS B - Pylorus C - Gastric mucous membrane D - Esophagus, NOS E - Ileum, NOS F - COLON BIOPSY Procedures: Special Stain Group II Surgery Specimen Level IV Alcian Blue/PAS (control) HEADER OPERATION: Colonoscopy, EGD ([facility] [place]) PRE-OP DIAGNOSIS: C. difficile colitis, chronic diarrhea, chronic elevated C-reactive protein TISSUE SUBMITTED: A ? Duodenum biopsy, B ? Pylorus biopsy, C ? Gastric body biopsy for H. pylori and path, D ? Distal esophagus biopsy, E - Terminal ileum biopsy, F ? Random colon biopsy MICROSCOPIC DIAGNOSIS A. Duodenum, biopsy: Fragments of duodenal mucosa, no pathologic diagnosis. B. Pylorus, biopsy: Mild gastritis. See microscopic description. C. Gastric body, biopsy: Mild gastritis. See microscopic description and comment. D. Distal esophagus, biopsy: Fragments of gastroesophageal mucosa with moderate mild chronic inflammation. Intestinal metaplasia (goblet cell metaplasia) not identified. See comment. E. Terminal ileum, biopsy: Fragments of small intestinal mucosa, no pathologic diagnosis. F. Colon, random biopsy: Fragments of colonic mucosa, no pathologic diagnosis. SJ:taz 08/26/2021 COMMENT C. The results of immunohistochemistry for Helicobacter pylori will be reported separately ([id number]). D. Alcian blue/PAS stain with matched control is used in the evaluation of the specimen. MICROSCOPIC DESCRIPTION Slides are reviewed. B & C. The specimen shows fragments of gastric mucosa with chronic inflammatory cell infiltrates in the lamina propria consisting of lymphocytes and plasma cells, consistent with mild chronic gastritis. GROSS DESCRIPTION A - Received in fixative is one container labeled with the patient's name and designated duodenum biopsy. The specimen consists of multiple irregular fragments of light webber soft tissue that in aggregate measure 1 x 0.5 x 0.1 cm. The specimen is totally submitted in one cassette. B - Received in fixative is one container labeled with the patient's name and designated pylorus biopsy. The specimen consists of one irregular fragment of light webber soft tissue that measures 0.3 x 0.3 x 0.1 cm. The specimen is totally submitted in one cassette. C - Received in fixative is one container labeled with the patient's name and designated gastric body biopsy. The specimen consists of two irregular fragments of light webber soft tissue that in aggregate measure 1 x 0.5 x 0.1 cm. The specimen is totally submitted in one cassette. D - Received in fixative is one container labeled with the patient's name and designated distal esophagus biopsy. The specimen consists of two irregular fragments of light webber soft tissue that in aggregate measure 0.6 x 0.3 x 0.1 cm. The specimen is totally submitted in one cassette. E - Received in fixative is one container labeled with the patient's name and designated terminal ileum biopsy. The specimen consists of multiple irregular fragments of light webber soft tissue that in aggregate measure 1 x 0.4 x 0.1 cm. The specimen is totally submitted in one cassette. F - Received in fixative is one container labeled with the patient's name and designated random colon biopsy. The specimen consists of multiple irregular fragments of light webber soft tissue that in aggregate measure 1.5 x 0.5 x 0.1 cm. The specimen is totally submitted in one cassette. / SJ:rg 08/25/2021 TC:3 CPT: 93715 x6, 82552
--- NOTE | 2021-08-25 11:25 | OP.EGD_ITS ---
Patient Name: Glenn Dan Procedure Date: 08/25/2021 10:31 AM Date of : 1990 Age: 31 Procedure: Upper GI endoscopy Indications: Epigastric abdominal pain, Functional Dyspepsia Providers: Dipak Juarez DO Referring MD: Dipak Juarez DO Medicines: Monitored Anesthesia Care Patient Profile: This is a 31 year old male. Refer to note in patient chart for documentation of history and physical. Patient has symptoms of chronic abdominal cramping, chronic epigastric abdominal pain and chronic dyspepsia. Complications: No immediate complications. Procedure: Pre-Anesthesia Assessment: - Prior to the procedure, a History and Physical was performed, and patient medications and allergies were reviewed. The patient is competent. The risks and benefits of the procedure and the sedation options and risks were discussed with the patient. All questions were answered and informed consent was obtained. Patient identification and proposed procedure were verified by the physician in the pre-procedure area. Mental Status Examination: alert and oriented. Airway Examination: normal oropharyngeal airway and neck mobility. Respiratory Examination: clear to auscultation. CV Examination: normal. Prophylactic Antibiotics: The patient does not require prophylactic antibiotics. Prior Anticoagulants: The patient has taken no previous anticoagulant or antiplatelet agents. ASA Grade Assessment: II - A patient with mild systemic disease. After reviewing the risks and benefits, the patient was deemed in satisfactory condition to undergo the procedure. The anesthesia plan was to use moderate sedation / analgesia (conscious sedation). Immediately prior to administration of medications, the patient was re-assessed for adequacy to receive sedatives. The heart rate, respiratory rate, oxygen saturations, blood pressure, adequacy of pulmonary ventilation, and response to care were monitored throughout the procedure. The physical status of the patient was re-assessed after the procedure. After obtaining informed consent, the endoscope was passed under direct vision. Throughout the procedure, the patient's blood pressure, pulse, and oxygen saturations were monitored continuously. The colonoscope was introduced through the mouth, and advanced to the second part of duodenum. The upper GI endoscopy was accomplished without difficulty. The patient tolerated the procedure well. Scope In: 10:55:27 AM Scope Out: 11:01:42 AM Total Procedure Duration Time 0 hours 6 minutes 15 seconds Findings: The Z-line was irregular and was found 37 cm from the incisors. Biopsies were taken with a cold forceps for histology. Verification of patient identification for the specimen was done. Estimated blood loss was minimal. Patchy mild inflammation characterized by erosions and erythema was found in the gastric body, in the gastric antrum and at the pylorus. Biopsies were taken with a cold forceps for histology. Verification of patient identification for the specimen was done. Estimated blood loss was minimal. Patchy mildly erythematous mucosa without active bleeding and with no stigmata of bleeding was found in the second portion of the duodenum. Biopsies were taken with a cold forceps for histology. Verification of patient identification for the specimen was done. Estimated blood loss was minimal. Impression: - Z-line irregular, 37 cm from the incisors. Biopsied. - Gastritis. Biopsied. - Erythematous duodenopathy. Biopsied. Recommendation: - Written discharge instructions were provided to the patient. - The signs and symptoms of potential delayed complications were discussed with the patient. - Patient has a contact number available for emergencies. - Return to normal activities tomorrow. - Resume previous diet. - Continue present medications. - Await pathology results. - Repeat upper endoscopy in 1 year. Procedure Code(s): --- Professional --- 57501, Esophagogastroduodenoscopy, flexible, transoral; with biopsy, single or multiple CPT copyright 2017 [employer]. All rights reserved. The codes documented in this report are preliminary and upon profiler operator review may be revised to meet current compliance requirements. Dipak Juarez DO 08/25/2021 11:24:30 AM This report has been signed electronically. Number of Addenda: 1 Note Initiated On: 08/25/2021 10:31 AM Addendum Number: 1 Addendum Date: 12/13/2021 6:11:46 AM MAC was used as sedation for this procedure. Dipak Juarez DO 12/13/2021 6:11:50 AM This report has been signed electronically.
--- NOTE | 2021-08-25 11:25 | OP.CCLET_ITS ---
12/13/2021 Reed Pichardo Re : Upper GI endoscopy procedure for Glenn Dan Dear Marino This procedure was performed on August. My impressions and recommendations are as follows: Impressions : - Z-line irregular, 37 cm from the incisors. Biopsied. - Gastritis. Biopsied. - Erythematous duodenopathy. Biopsied. Recommendations : - Written discharge instructions were provided to the patient. - The signs and symptoms of potential delayed complications were discussed with the patient. - Patient has a contact number available for emergencies. - Return to normal activities tomorrow. - Resume previous diet. - Continue present medications. - Await pathology results. - Repeat upper endoscopy in 1 year. My findings are described in the full procedure note, which is enclosed. If I can be of further assistance, please feel free to contact me at . Sincerely, Dipak Juarez, 08/25/2021 11:24:30 AM This report has been signed electronically.
--- NOTE | 2021-08-25 11:28 | OP.COLON_ITS ---
Patient Name: Glenn Dan Procedure Date: 08/25/2021 11:02 AM Date of : 1990 Age: 31 Procedure: Colonoscopy Indications: Clinically significant diarrhea of unexplained origin Providers: Dipak Juarez DO Referring MD: Dipak Juarez DO Medicines: Monitored Anesthesia Care Patient Profile: This is a 31 year old male. Refer to note in patient chart for documentation of history and physical. Patient has symptoms of chronic abdominal cramping, chronic epigastric abdominal pain and chronic dyspepsia. Last Colonoscopy: none. The patient's first colonoscopy is today. Complications: No immediate complications. Procedure: Pre-Anesthesia Assessment: - Prior to the procedure, a History and Physical was performed, and patient medications and allergies were reviewed. The patient is competent. The risks and benefits of the procedure and the sedation options and risks were discussed with the patient. All questions were answered and informed consent was obtained. Patient identification and proposed procedure were verified by the physician in the pre-procedure area. Mental Status Examination: alert and oriented. Airway Examination: normal oropharyngeal airway and neck mobility. Respiratory Examination: clear to auscultation. CV Examination: normal. Prophylactic Antibiotics: The patient does not require prophylactic antibiotics. Prior Anticoagulants: The patient has taken no previous anticoagulant or antiplatelet agents. ASA Grade Assessment: II - A patient with mild systemic disease. After reviewing the risks and benefits, the patient was deemed in satisfactory condition to undergo the procedure. The anesthesia plan was to use moderate sedation / analgesia (conscious sedation). Immediately prior to administration of medications, the patient was re-assessed for adequacy to receive sedatives. The heart rate, respiratory rate, oxygen saturations, blood pressure, adequacy of pulmonary ventilation, and response to care were monitored throughout the procedure. The physical status of the patient was re-assessed after the procedure. - Prior to the procedure, a History and Physical was performed, and patient medications and allergies were reviewed. The patient is competent. The risks and benefits of the procedure and the sedation options and risks were discussed with the patient. All questions were answered and informed consent was obtained. Patient identification and proposed procedure were verified by the physician in the pre-procedure area. Mental Status Examination: alert and oriented. Airway Examination: normal oropharyngeal airway and neck mobility. Respiratory Examination: clear to auscultation. CV Examination: normal. ASA Grade Assessment: II - A patient with mild systemic disease. After reviewing the risks and benefits, the patient was deemed in satisfactory condition to undergo the procedure. The anesthesia plan was to use moderate sedation / analgesia (conscious sedation). Immediately prior to administration of medications, the patient was re-assessed for adequacy to receive sedatives. The heart rate, respiratory rate, oxygen saturations, blood pressure, adequacy of pulmonary ventilation, and response to care were monitored throughout the procedure. The physical status of the patient was re-assessed after the procedure. After I obtained informed consent, the scope was passed under direct vision. Throughout the procedure, the patient's blood pressure, pulse, and oxygen saturations were monitored continuously. The colonoscope was introduced through the anus and advanced to the terminal ileum. The terminal ileum, ileocecal valve, appendiceal orifice, and rectum were photographed. Scope In: 11:04:39 AM Scope Withdrawal Time 0 hours 9 minutes 38 seconds Scope Out: 11:16:50 AM Total Procedure Duration Time 0 hours 12 minutes 11 seconds Findings: The colon (entire examined portion) appeared normal. Biopsies were taken with a cold forceps for histology. Verification of patient identification for the specimen was done. Estimated blood loss was minimal. A patchy area of the terminal ileum was congested. Biopsies were taken with a cold forceps for histology. Internal hemorrhoids were found during retroflexion. The hemorrhoids were Grade I (internal hemorrhoids that do not prolapse). Impression: - The entire examined colon is normal. Biopsied. - Congested mucosa in the terminal ileum. Biopsied. Recommendation: - Discharge patient to home. - Resume previous diet. - Continue present medications. - Await pathology results. - Repeat colonoscopy is recommended. The colonoscopy date will be determined after pathology results from today's exam become available for review. Procedure Code(s): --- Professional --- 04418, Colonoscopy, flexible; with biopsy, single or multiple CPT copyright 2017 [employer]. All rights reserved. The codes documented in this report are preliminary and upon rn team leader review may be revised to meet current compliance requirements. Dipak Juarez DO 08/25/2021 11:28:23 AM This report has been signed electronically. Number of Addenda: 1 Note Initiated On: 08/25/2021 11:02 AM Addendum Number: 1 Addendum Date: 12/13/2021 6:11:59 AM MAC was used as sedation for this procedure. Dipak Juarez DO 12/13/2021 6:12:03 AM This report has been signed electronically.
--- NOTE | 2021-08-25 11:29 | OP.CCLET_ITS ---
12/13/2021 Reed Pichardo Re : Colonoscopy procedure for Glenn Dan Dear Marino This procedure was performed on August. My impressions and recommendations are as follows: Impressions : - The entire examined colon is normal. Biopsied. - Congested mucosa in the terminal ileum. Biopsied. Recommendations : - Discharge patient to home. - Resume previous diet. - Continue present medications. - Await pathology results. - Repeat colonoscopy is recommended. The colonoscopy date will be determined after pathology results from today's exam become available for review. My findings are described in the full procedure note, which is enclosed. If I can be of further assistance, please feel free to contact me at . Sincerely, Dipak Juarez, 08/25/2021 11:28:23 AM This report has been signed electronically.
--- NOTE | 2021-08-25 11:54 | EKG12_ITS ---
Test Reason : POST OP Blood Pressure : / mmHG Vent. Rate : 054 BPM Atrial Rate : 054 BPM P-R Int : 160 ms QRS Dur : 106 ms QT Int : 458 ms P-R-T Axes : 002 189 059 degrees QTc Int : 434 ms Sinus bradycardia Inferior infarct , subacute Anterolateral infarct , age undetermined Abnormal ECG No previous ECGs available Confirmed by HALEY VAZQUEZ, BETH ([id number]), scientific editor MICHEAL WALTERS ([id number]) on 08/30/2021 8:56:00 AM Referred By: Dipak Juarez Confirmed By:BETH DE LEON MD
--- NOTE | 2021-08-25 12:00 | SUR.PHASEI ---
EKG OBTAINED AND THE [facility] TECH SHOWED THE EKG TO DR. DUNBAR BECAUSE IT SAID ACUTE IN. DR. DUNBAR SAID THAT IT SHOWED A POSSIBLE OLD INFARCT. HE WAS IN AGREEANCE WITH DR. ENRIQUEZ THAT A STAT TROPONIN AND POTASSIUM NEEDED DONE AND TO ADD A CBC. LABS ORDERED AND WILL BE OBTAINED STAT.
[2021-08-25 12:25] LABS: Hemoglobin 13.8 g/dL (13.0-16.5); Mean Corp Hgb Conc 35.4 g/dL (32-36); Mean Corpuscular Hgb 32.2 pg (27.0-32.0); Mean Corpuscular Volume 90.9 fL (80-94); Mean Platelet Vol. 10.3 fl (6.2-12.0); Platelet Count 153 K/mm3 (150-450); RBC Distribution Width CV 12.2 % (11.6-14.6); RBC Distribution Width SD 40.4 fl (35.1-43.9); Red Blood Count 4.29 M/mm3 (4.6-6.2); White Blood Count 5.7 K/mm3 (4.4-11.0)
[2021-08-25 12:39] LABS: Potassium 4.2 mmol/L (3.5-5.1); Troponin-I HS 6 pg/mL (3.0-78.0)
--- NOTE | 2021-08-25 12:50 | SUR.PHASEI ---
DR. ENRIQUEZ UPDATED ABOUT HIS EKG AND LAB RESULTS. HE SAID SINCE HIS LABS ARE NORMAL AND PATIENT DENIES PAIN HE IS OK TO GO BACK OVER TO PHASE 2. HE WILL SPEAK TO THE PATIENT OVER THERE.
== END 2021-08-25 13:47 | disposition home or self-care (01) ==
LOC: EN 10:14 → AC 10:16
PROVIDERS: Anesthesiology; PCP Family Medicine; Referring Provider Internal Medicine Gastroenterology; Visit Provider Internal Medicine Gastroenterology
PROC: 0DJD8ZZ Inspection of Lower Intestinal Tract, Via Natural or Artificial Opening Endoscopic (ICD-10-PCS; CPT 45378; principal; 2021-08-25 10:55)
DX: K20.90 Esophagitis, unspecified without bleeding (principal); K29.50 Unspecified chronic gastritis without bleeding; K64.0 First degree hemorrhoids; K63.89 Other specified diseases of intestine; F17.200 Nicotine dependence, unspecified, uncomplicated; F32.9 Major depressive disorder, single episode, unspecified; F41.9 Anxiety disorder, unspecified; Z79.899 Other long term (current) drug therapy
CPT/HCPCS: 43239; 45380; 84132; 84484; 85027; 88305; 88313; 88342; 93005; J7120; J2405

== ENCOUNTER 2024-01-01 16:28 | Emergency (ER) | payer MEDICAID, SELFPAY ==
[2024-01-01 16:29] VITALS: BP 147/84; PULSE 78; RESP 18; TEMP 36.8; O2SAT 100; BMI 23.8
--- NOTE | 2024-01-01 17:08 | RAD_ITS ---
EXAM: XR RIGHT HAND COMPLETE, 3 OR MORE VIEWS CLINICAL INDICATION: foreign body TECHNIQUE: Frontal, lateral and oblique views of the right hand. COMPARISON: No relevant prior studies available. FINDINGS: BONES/JOINTS: Unremarkable. No acute fracture. No subluxation. Normal alignment. Preservation of the joint space. No sclerotic or destructive changes observed. SOFT TISSUES: Unremarkable. No soft tissue swelling or gas. No radiopaque foreign body. RAD/Hand Min 3 Views IMPRESSION: Negative right hand x-rays. Electronically Signed: Tu Heard MD at 18:08 EDT ,
--- NOTE | 2024-01-01 17:11 | RAD_ITS ---
EXAM: XR RIGHT FOREARM, 2 VIEWS CLINICAL INDICATION: foreign body TECHNIQUE: Frontal and lateral views of the right forearm. COMPARISON: No relevant prior studies available. FINDINGS: BONES/JOINTS: Unremarkable. No acute fracture. No dislocation. SOFT TISSUES: Unremarkable. RAD/Forearm 2 Views IMPRESSION: Negative right forearm x-rays. Electronically Signed: Tu Heard MD at 18:06 EDT ,
--- NOTE | 2024-01-01 18:17 | EX.ED.UPPERE ---
HPI History of Present Illness Chief Complaint: Laceration Narrative Narrative: 33-year-old male who denies significant past medical history presents with injuries to his right thumb, right forearm, and right upper arm after punching a window. He states he was frustrated and is stressed, and punched a window out of anger. He sustained lacerations mainly to his upper arm, the distal portion, to his right forearm, and to his right thumb. His tetanus immunization is within the last 3 years. He denies other injury. He presents because of the lacerations/skin avulsions. [facility] Medical History Tobacco abuse Esophagitis Tenesmus (rectal) Anxiety PTSD (post-traumatic stress disorder) Marijuana use Bite by animal Low iron Hx of blood diseases Easy bruising Restless legs Injury of back Injury of head and neck Loss of consciousness Heartburn Smoker Shortness of breath on exertion Leg cramps History of pain when walking History of edema Chest pain Chronic diarrhea C. difficile colitis Abdominal pain Elevated C-reactive protein (CRP) Colitis Neuropathy Frequent headaches Gout COPD (chronic obstructive pulmonary disease) Back pain Arthritis Alcohol abuse Right sided colitis Depression Low back pain Home Medications ?Medication ?Instructions ?Recorded ?Last Taken ?Type NK 01/01/24 Unknown History Allergy/AdvReac Type Severity Reaction Status Date / Time Penicillins Allergy Unknown Verified 10/14/21 09:34 Surgical History History of colonoscopy (08/2021) History of esophagogastroduodenoscopy (EGD) (08/2021) Hx of arthroscopic knee surgery Social History Smoking Status: Current every day smoker tobacco type: cigarettes and e-cigarettes alcohol intake: former substance use type: marijuana frequency: 1-2 times per week ROS ROS ED ROS Narrative Focused review of systems Musculoskeletal: No myalgias. No arthralgias. Skin: No rash. No change in color. Positive lacerations to right thumb, forearm, and right upper arm. Denies other injuries. EXAM Physical Exam Narrative Exam Narrative: Afebrile. Vital signs noted. GCS 15. ABCs intact. Regular rate and rhythm. Lungs clear to auscultation bilaterally. Abdomen soft nontender with normoactive bowel sounds. Neurological examination nonfocal and nonlateralizing. Examination of the right upper arm does show a 2 cm laceration with minimal oozing of blood. Laceration is elliptical in shape/linear. On the right forearm is a very superficial skin avulsion without active bleeding. Additionally, on his thumb, there is 1/2 cm skin avulsion that is more circular without active bleeding. He has full range of motion of his thumb. No tenderness of the hand, no crepitance along the fourth and fifth met at carpals. Palpable radial pulse. Good capillary refill of fingers. Const Vital Signs: 01/01/24 16:29 Temperature 98.2 F Temperature Source Oral Pulse Rate 78 Respiratory Rate 18 Blood Pressure 147/84 H Blood Pressure Mean 105 Pulse Ox 100 Oxygen Delivery Method Room Air MDM MDM MDM Narrative Medical decision making narrative: Differential diagnosis includes hand contusion versus fracture of the hand. There could also be foreign bodies in the lacerations, but patient denies foreign body sensation in any of the lacerations. He has more of a skin avulsion on his thumb, and I discussed with him attempted wound closure with sutures, but dog earring would be an preventable. Additionally, the superficial skin avulsion that measures approximately 1 cm in elliptical form on his right forearm will be cleansed and dressed with Vaseline gauze as well. Laceration repair of the 2 cm laceration on the distal upper arm will be performed. RN ordered x-rays of the right hand and forearm per protocol. I individually interpreted the x-rays of the hand and see no evidence of acute fracture. I additionally individually interpreted the x-rays the right forearm and see no evidence of fracture or foreign body. I reviewed the radiology report which confirms my independent interpretations of both. See procedure note for details of wound closure. Radiography Diagnostic Testing: Clinical Impression(s) from Imaging Studies Hand X-Ray 01/01/24 17:08 IMPRESSION: Negative right hand x-rays. Electronically Signed: Tu Heard MD at 18:08 EDT , Forearm X-Ray 01/01/24 17:11 IMPRESSION: Negative right forearm x-rays. Electronically Signed: Tu Heard MD at 18:06 EDT , Procedures Lacerations Right upper arm: Length: 0.79 in Depth: Skin Shape: Linear Prep: Sterile Conditions Laceration repair: Irrigated, Lidocaine, Local, Skin sutures and Wound explored (No foreign body) Number of Sutures/Urania: 6 Suture Information: Ethilon, Simple and 5-0 Comment: Patient tolerated procedure well. Discharge Plan Triage Chief Complaint: Laceration ED Provider: Shashank Fraire Dx/Rx/DC Orders Clinical Impression: Avulsion of skin of forearm, Avulsion of skin of finger, Laceration of upper arm Instructions: ED Laceration, All Closures, ED Skin Tear (Skin Avulsion) Prescriptions: No Action NK Primary Care Provider: Care Physician,No Primary Referrals: Reed Pichardo MD [Non-Staff] - 10 Day for suture removal Activity Restrictions/Additional Instructions: Return to the emergency department with fever, drainage of pus from wound, increased redness, new or worsening symptoms. Print Language: Tunisian Disposition Disposition: Home, Self Care
[2024-01-01 18:33] VITALS: BP 122/65; PULSE 75; RESP 16; O2SAT 96
[2024-01-01 19:00] VITALS: BP 118/75; PULSE 65; RESP 16; TEMP 36.8; O2SAT 96
[2024-01-01] MEDS: Lidocaine 1% (20 ml mdv) 20 ML Vial INFILT (19:31)
== END 2024-01-01 19:19 | disposition home or self-care (01) ==
PROVIDERS: Emergency Provider Emergency Medicine; Visit Provider Emergency Medicine
DX: S41.111A Laceration without foreign body of right upper arm, initial encounter (principal); J44.9 Chronic obstructive pulmonary disease, unspecified; S51.811A Laceration without foreign body of right forearm, initial encounter; S61.011A Laceration without foreign body of right thumb without damage to nail, initial encounter; W22.09XA Striking against other stationary object, initial encounter; M19.90 Unspecified osteoarthritis, unspecified site; F17.210 Nicotine dependence, cigarettes, uncomplicated; F17.290 Nicotine dependence, other tobacco product, uncomplicated; Z88.0 Allergy status to penicillin
CPT/HCPCS: 12001; 73090; 73130; 99283